=== PATIENT | male | born 1965 | race Caucasian/White ===

== ENCOUNTER 2020-06-11 02:13 | Emergency (ER) | payer OTHER, SELFPAY | END 2020-06-11 03:04 | disposition home or self-care (01) | LOC: ERS 02:13 | DX: S16.1XXA Strain of muscle, fascia and tendon at neck level, initial encounter (principal); R60.0 Localized edema; V89.2XXA Person injured in unspecified motor-vehicle accident, traffic, initial encounter | CPT/HCPCS: 99281 ==